=== PATIENT | female | born 2000 | race African-American/Black ===

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

== ENCOUNTER 2020-12-14 09:22 | Inpatient (IN) | payer OTHER ==
[~2020-12-14 09:22] MED LIST: Bupivacaine HCl 0.25%/Epi 0.0005/PF 10 ML VIAL FS ONE
[2020-12-14 09:51] VITALS: BMI 21.4
[2020-12-14] MEDS ORDERED: hydrALAZINE 20 MG/ML VIAL SLOW IVP PRN ×2 (11:00→23:24)
[2020-12-14] MEDS ORDERED: Lidocaine 1% (PF) 30 ML VIAL SC PRN (11:00)
[2020-12-14] MEDS ORDERED: Ondansetron PF 4 MG/2 ML Vial IVP PRN (11:00)
[2020-12-14] MEDS ORDERED: Acetaminophen 500 MG TAB PO PRN (11:00)
[2020-12-14] MEDS ORDERED: Promethazine HCl 25 MG/ML VIAL IM PRN (11:00)
[2020-12-14] MEDS ORDERED: Docusate 100 MG CAP PO PRN (11:00)
--- NOTE | 2020-12-14 11:06 | PDOC.FPROB ---
FMR OB H&P: HPI - History of Present Illness Chief Complaint: Leakage of fluid Indentification: 20 yo @ 38.4 wk by 22 wk US presenting for concern for SROM History of Present Illness: Presenting today for leakage of fluid. Stated that she noticed it at 5am when she woke up to a panty liner with fluid. She reported persistent leakage of fluid with mild blood tinge for the rest of the morning requiring 6 pads. She is feeling normal baby movement. She has had vaginal discharge 2/2 candidiasis treated with daily clotrimazole cream that she hasn't taken since Tuesday. Last VP3 negative for all pathogens on 12/12. Primary Care Physician: TYLER De Anda FMR OB H&P: Current - Care : 2 Para: 0010 Gestational age: 38.4 wks Due date: 12/24 Dating Criteria: 22 wk US Course/Complications: None - OB Labs Blood type: O RH: positive Antibody Screen: negative HIV: negative RPR: negative HepBsAg: negative Rubella: immune Gonorrhea: negative Chlamydia: negative 3 hour GTT: fast:74, 1 hr 140, 2 hr 107 GBS: negative FMR OB H&P: History - Past Medical History PMH: Anxiety, Depression, hx of self harm - OB History OB History: 1 2019 @ 11 wks - [employer] History [employer] History: None - Surgical History Sx History: Denies - Social History Social History: Denies X3 - Family History Family History: Thyroid issues in Mom and aunt-on medicine FMR OB H&P: Medications - Current Home Medications: Medication Instructions Recorded Confirmed Type Ferrous Sulfate 325 mg PO DAILY 12/14/20 12/14/20 History Vitamin 1 tablet PO DAILY 12/14/20 12/14/20 History Allergies/Adverse Reactions: Allergies Allergy/AdvReac Type Severity Reaction Status Date / Time No Known Allergies Allergy Unverified 12/14/20 09:52 FMR OB H&P: ROS - Review of Systems General: denies: fever/chills, weight/appetite/sleep changes Eyes: denies: vision changes, double vision ENT: denies: rhinorrhea, sore throat Cardiovascular: denies: chest pain, edema Respiratory: denies: cough, shortness of breath Gastrointestinal: denies: abdominal pain, nausea, vomiting, bright red blood Genitourinary (Female): denies: incontinence, dysuria, hematuria Musculoskeletal: denies: pain Neurologic: denies: numbness, syncope Hematologic/Lymphatic: denies: prolonged or excessive bleeding Psychological: denies: depression, anxiety FMR OB H&P: Vital Signs - Maternal Vital signs: Vital Signs - First Documented Temp Pulse Resp BP 98.3 F 81 18 108/73 12/14/20 09:35 12/14/20 09:35 12/14/20 09:35 12/14/20 09:35 - Heart Tones Baseline: 135 Variability: moderate Acceleration: present Deceleration: absent Category: category 1 [place] contractions every: 5-7 mins FMR OB H&P: Physical Exam - Physical Exam General: NAD, awake, alert and oriented HEENT: normocephalic and atraumatic, grossly normal vision, grossly normal hearing Neck: supple, FROM Heart: RRR, normal S1/S2 General: CTAB, no respiratory distress, good air movement Abdomen: gravid, non-tender, bowel sound present Neurological: sensation to pain,touch and proprioception grossly normal Skin: no rash, good tugor Lymphatic: no unusual bruising or bleeding, no purpura - Pelvic Exam Vulva: normal hair distribution, appropriate tello stage, no discharge SVE: /-2 Hopper score: 6 Membranes: ruptured Presentation: cephalic Estimated Weight: 7 lbs FMR OB H&P: A/P Discussion: Date/Time: 12/14/20 1106 20 yo @ 38.4 wk by 22 wk US presenting for concern for SROM sIUP in Labor - SROM based on pooling on exam, will admit - SVE /-2 serial recheck, consider starting pitocin at next check - FHT cat 1 - Desires epidural - Amnisure pending Will admit for labor, augmentation PRN. This H&P was discussed with Dr. Lin and Dr. Calix who agree with the above documentation and plan. Addendum - Attending - Attending Attestation Date/Time: 12/14/20 3131 I personally evaluated the patient and discussed the management with Dr. Aguilar I agree with the History, Examination, Assessment and Plan documented above with any addition or exceptions noted below - 20 yo @ 38.4 weeks presented c/o LOF @5AM. Denies any ctx, VB (+) FM. Afebrile VSS. SSE (+) pooling; SVE /-2; Cat 1 FHTs; [place]- ctx q 5-7 minutes. A/P: 1) IUP @38.4 weeks with ROM in early labor - will monitor for 2-3 hours and recheck. If no change or increased ctx, will start pitocin. Epidural when desired.
[2020-12-14] MEDS ORDERED: NS w/ Oxytocin 30 units 500 ML IVPB PRN (11:40)
[2020-12-14 11:48] LABS: Amnisure Test RUPTURE DETECTED (No Rupture)
[2020-12-14 11:49] LABS: Amnisure Internal Control QC ACCEPTABLE (ACCEPTABLE)
[2020-12-14] MEDS: Lactated Ringer's 1,000 ML IV SCH ×2 (12:11→17:01)
[2020-12-14 12:26] LABS: Hemoglobin 13.6 g/dL (12.0-16.0); Mean Corpuscular HGB CONC 34.6 g/dL (32.0-36.0); Mean Corpuscular Hemoglobin 31.6 pg (25.0-35.0); Mean Corpuscular Volume 91.2 fL (78.0-98.0); Mean Platelet Volume 8.6 fL (7.4-10.4); Platelet Count 154 thou/uL (130-400); Red Blood Cell (RBC) Count 4.32 mill/uL (4.00-5.20); White Blood Cell (WBC) Count 8.4 thou/uL (4.8-10.8)
[2020-12-14 13:14] LABS: HBSAg Index 0.18 S/CO (0-0.99); Hep B Surf Ag Non-Reactive S/CO (NonReactive)
[2020-12-14 13:19] LABS: Syphilis Antibody Nonreactive (Nonreactive); Syphilis Antibody Index 0.07 S/CO (<1.00 Non-Reactive)
--- NOTE | 2020-12-14 14:08 | PDOC.OBLPN ---
FMR OB Labor PN: Obj - Maternal Vital signs: BP: [] HR: [] RR: [] Tmax: [] Pox: []% on [] Wt: [] FMR OB Labor PN: Data - Labs Lab results: Laboratory Results - last 24 hr 12/14/20 12/14/20 12/14/20 10:22 12:17 12:17 WBC RBC Hgb Hct MCV MCH MCHC RDW Plt Count MPV Amnio Swab Test RUPTURE DETECTED H Syphilis IgG/IgM Ab Nonreactive Hep Bs Antigen Non-Reactive Blood Type Antibody Screen 12/14/20 12/14/20 12/14/20 12:17 12:17 12:50 WBC 8.4 RBC 4.32 Hgb 13.6 Hct 39.4 MCV 91.2 MCH 31.6 MCHC 34.6 RDW 13.0 Plt Count 154 MPV 8.6 Amnio Swab Test Syphilis IgG/IgM Ab Hep Bs Antigen Blood Type O POSITIVE O POSITIVE Antibody Screen NEGATIVE FMR OB Labor PN: A/P Discussion: Date/Time: 12/14/20 6590 This H&P was discussed with [] and [] who agree with the above documentation and plan.
--- NOTE | 2020-12-14 14:12 | PDOC.LDPN ---
Labor & Delivery Progress Note - Subjective Subjective: comfortable, no concerns - Objective Vital signs reviewed and normal: yes General: NAD, resting SVE: /-2 FHT: category 1, variability present [place] contractions every: 3-5 irregular Plan: continue plan of care, pitocin for augmentation -: 20 yo @ 38.4 wk by 22 wk US presenting for concern for SROM sIUP in Labor - SVE /-2, /-1 @ 1400 - FHT cat 1 - Desires epidural - Will start pitocin at this time, titrate as indicated - Amnisure positive Discussed w/ Dr. Calix.
[2020-12-14] MEDS ORDERED: Fentanyl 4 mcg/Bup 0.1% Cadd 100 ML ONE (15:46)
--- NOTE | 2020-12-14 16:38 | PDOC.LDPN ---
Labor & Delivery Progress Note - Subjective Subjective: comfortable - Objective Vital signs reviewed and normal: yes General: NAD SVE: 3.5/90/-1 FHT: category 1, variability present [place] contractions every: 3 mins Plan: continue plan of care, pitocin for augmentation -: 20 yo @ 38.4 wk by 22 wk US presenting for concern for SROM sIUP in Labor - SVE /-2, /-1 @ 1400, 3.5/-1 - FHT cat 1 - Desires epidural - Continue Pitocin, titrate as needed Discussed w/ Dr. Calix.
[2020-12-14 19:57] LABS: SARS-CoV-2 PCR by NAA Not Detected (NotDetected)
--- NOTE | 2020-12-14 21:02 | PDOC.BPN ---
- Brief Progress Note Cervical check at 2100: ant lip only contractions on toco q3-4 min on Pit 10 baseline 125 bpm with moderate variability and early decels anticipate . will set up for delivery
[2020-12-14] MEDS ORDERED: Milk Of Magnesia 30 ML UDCUP PO PRN (23:24)
[2020-12-14] MEDS ORDERED: NS / Oxytocin 40 units/1000ml 1,000 ML IV SCH (23:24)
[2020-12-14] MEDS ORDERED: Lanolin Ointment 7 GM TUBE TOP PRN (23:24)
[2020-12-14] MEDS ORDERED: Bisacodyl 10 MG SUPP PR PRN (23:24)
[2020-12-14] MEDS ORDERED: Benzocaine-Menthol 82.5 ML CAN TOP PRN (23:24)
[2020-12-15] MEDS ORDERED: Sodium Chloride 0.9% 10 ML ONE ×2 (01:11→06:45)
[2020-12-15] MEDS ORDERED: Ibuprofen 800 MG TAB PO SCH ×2 (02:00→06:00)
--- NOTE | 2020-12-15 06:56 | PDOC.OBPPN ---
FMR OB PN: Subj - Interval History Hospital Day: 1 Day: 1 Chief Complaint: LOF Indentification: G2>P1011 Interval History: No complaints FMR OB PN: Obj - Maternal Vital signs: BP: [123/79] HR: [72] RR: [20] Tmax: [98.9] Pox: [100]% on [Room Air] Wt: [] - Urine output I&O: 12/13/20 12/14/20 12/15/20 06:59 06:59 06:59 Intake Total 1164 Output Total 298 Balance 866 - Lochia Lochia: Mild - Pain Management Pain scale: 2 Intervention: oral medication FMR OB PN: Exam - Physical Exam General: NAD, awake, alert and oriented HEENT: normocephalic and atraumatic, PERRLA, EOMI, MMM, conjunctiva clear, no scleral icterus, grossly normal vision, grossly normal hearing, normal nasal mucosa, oropharynx clear Neck: supple, FROM, trachea midline Chest: non-tender to palpation Breast: symmetric Heart: RRR, normal S1/S2, no murmurs/rubs/gallops, pulses present, no edema General: CTAB, no respiratory distress, good air movement, no rales/rhonchi, no wheezing, no retractions Abdomen: soft, fundus(cm) (<Umbilicus), bowel sound present Musculoskeletal: pulses present, FROM in all four extremities, no atrophy Neurological: no focal deficit : appropriately tender Psychiatric: intact recent and remote memory, good judgement and insight, normal mood and affect FMR OB PN: Data - Labs Lab results: Laboratory Results - last 24 hr 12/14/20 12/14/20 12/14/20 10:22 12:17 12:17 WBC RBC Hgb Hct MCV MCH MCHC RDW Plt Count MPV Amnio Swab Test RUPTURE DETECTED H Syphilis IgG/IgM Ab Nonreactive Hep Bs Antigen Non-Reactive SARS CoV-2 Rapid Source SARS-CoV-2 RNA (REMY) Blood Type Antibody Screen 12/14/20 12/14/20 12/14/20 12:17 12:17 12:50 WBC 8.4 RBC 4.32 Hgb 13.6 Hct 39.4 MCV 91.2 MCH 31.6 MCHC 34.6 RDW 13.0 Plt Count 154 MPV 8.6 Amnio Swab Test Syphilis IgG/IgM Ab Hep Bs Antigen SARS CoV-2 Rapid Source SARS-CoV-2 RNA (REMY) Blood Type O POSITIVE O POSITIVE Antibody Screen NEGATIVE 12/14/20 13:00 WBC RBC Hgb Hct MCV MCH MCHC RDW Plt Count MPV Amnio Swab Test Syphilis IgG/IgM Ab Hep Bs Antigen SARS CoV-2 Rapid Source Nasopharyngeal Swab SARS-CoV-2 RNA (REMY) Not Detected Blood Type Antibody Screen FMR OB PN: A/P - Problem List (1) Intrauterine Current Visit: Yes Status: Acute Code(s): Z34.90 - ENCNTR FOR SUPRVSN OF NORMAL , UNSP, UNSP TRIMESTER (2) History of self-harm Current Visit: Yes Status: Acute Code(s): Z91.5 - PERSONAL HISTORY OF SELF- HARM Disposition: Patient is a 20 y/o G2>P1010 @ 38.4W EGA by LMP, c/w 2T US, who presented to L&D for evaluation of LOF. #SIUP, devliered -Patient delivered via @ 2138 on 12/14/20 -Delivery was complicated by 2 olaf-urethral tears and a 1* perineal laceration - s/p repair, hemodynamically stable -Pain well controlled with PRN Tylenol / Ibuprofen / routine perineal care -VSS overnight - no fevers or elevated pressures -Physical Exam unremarkable, with fundus < umbilicus and no strike-through noted on pad -Patient desires to breastfeed - consult in place -Will otherwise plan for routine Care #Hx of Self-Harm -Tracked throughout with QTrimester PHQ-9s - no repeat episodes noted during period -Patient appears well at this time -Will monitor closely for signs of Depression / Psychosis PCP: TYLER Cortés) Diet: Full Activity: Ad ben VTE PPx: None IVF: None ABx: None Dispo: Patient is currently stable and admitted to the cardiology nurse Women's Floor for routine Care. Will control pain and monitor for signs and symptoms of Depression / Psychosis throughout stay, and will otherwise plan for routine Care. Will likely plan to transfer to [facility] based on stability. Expected LOS < 48H. Discussion: Date/Time: 12/15/20 4029 This H&P was discussed with [] and [] who agree with the above documentation and plan. Addendum - Attending - Attending Attestation Date/Time: 12/15/20 7510 I personally evaluated the patient and discussed the management with Dr. De Anda I agree with the History, Examination, Assessment and Plan documented above with any addition or exceptions noted below - Patient without complaints. Afebrile VSS. A/P: 1) PPD #1 s/p - continue routine care. Transfer to [facility] today.
--- NOTE | 2020-12-15 07:23 | DN ---
DATE OF PROCEDURE: 12/14/2020 DELIVERING PHYSICIANS: Briseyda Farrell MD, PGY-1 and Nomi De Anda MD, PGY- 2 ATTENDING PHYSICIAN: Дмитрий Garay MD PROCEDURE: Spontaneous vaginal delivery. ANESTHESIA: Epidural. QBL: 130 mL. PREOPERATIVE DIAGNOSES: 1. Term intrauterine , in labor. 2. History of anxiety and depression and self-harm. POSTOPERATIVE DIAGNOSES: 1. Term intrauterine , delivered. 2. History of anxiety and depression and self-harm. INDICATIONS: A 20-year-old female, G2, P0-0-1-0 at 38 and 4 weeks by 22-week ultrasound, who delivered a viable male infant at 2138 hours. Following an uneventful antepartum course, a vigorous male was delivered over the perineum in the occipitoanterior position, anterior shoulder and then remainder of the body was delivered. No nuchal cord. The head was held down, and the mouth and nares were bulb suctioned. Cord clamped and cut, and cord blood collected. Placenta delivered intact with a three-vessel cord noted in the Evans presentation. Fundal massage was performed and the fundus was firm. The cervix and vagina were inspected and found to have a first-degree perineal laceration with bilateral periurethral tears. They were repaired with 3-0 chromic and 3-0 Vicryl in the usual fashion with good approximation of hemostasis. Infant went to nursery in good condition for routine care. Apgars were 8 and 9 at one and five minutes respectively. The patient tolerated delivery well and went to after routine recovery and care. Dr. Garay was present and teaching throughout the whole delivery. Job ID: [id number] [facility]
[2020-12-15] MEDS ORDERED: Ferrous Sulfate 325 MG TAB PO SCH (08:00)
[2020-12-15 08:15] VITALS: BP 98/61; TEMP 98
--- NOTE | 2020-12-15 08:51 | PDOC.DS.DS ---
Provider Date of Admission: 12/14/20 11:35 Admitting Provider: Poonam Calix MD Primary Care Physician: [facility] Hospital Course: Patient is a 20 y/o G2>P1010 @ 38.4W EGA by LMP, c/w 2T US s/p @ 2138 on 12/14/20. Delivery was complicated by 2 olaf-urethral tears and a 1* perineal laceration - s/p repair, hemodynamically stable. Delivered viable male. Lab Results: 12/14/20 12:17 Abnormal Lab Results - Last 48 hrs 12/14/20 10:22: Amnio Swab Test RUPTURE DETECTED H Vitals: Vital Signs (12 hours) Temp Pulse Resp BP Pulse Ox 12/15/20 08:00 98.0 F 84 20 98/61 98 12/15/20 03:20 98.9 F 72 20 123/79 100 12/15/20 02:20 98.1 F 100 20 114/75 100 12/15/20 01:10 98.5 F 84 20 115/66 100 Weight Weight 56.699 kg Physical Exam: The patient was seen and examined on the day of discharge. Problem Assessment: Patient stable to transfer to [facility] for further care. Will control pain and monitor for signs and symptoms of Depression / Psychosis throughout stay, and will otherwise plan for routine Care. Plan Home Medications: Medication Instructions Recorded Confirmed Type Ferrous Sulfate 325 mg PO DAILY 12/14/20 12/14/20 History Vitamin 1 tablet PO DAILY 12/14/20 12/14/20 History Allergies: No Known Allergies Allergy (Unverified 12/14/20 09:52) Activity:: Activity as Tolerated Nourishment:: Regular Diet Therapies:: Not Applicable Equipment/Supplies:: Not Applicable IV Therapy:: Not Applicable Referrals: Poonam Calix MD [Primary Care Provider] - Disposition: OTHER HOSPITAL IN [facility] MEASURES:: N/A Did you prescribe antithrombotic therapy?: No Specify reason for no DC antithrombotic therapy: Treatment not indicated Did you prescribe anticoagulant for A Fib/Flutter?: No Specify reason for no DC anticoagulant: Treatment not indicated Did you prescribe a statin medication?: No Specify reason for no DC statin medication: Treatment not indicated
[2020-12-15] MEDS ORDERED: Prenatal Vitamin 1 TAB PO SCH (09:00)
[2020-12-15] MEDS ORDERED: FLU VACC QS2020-21(6MOS UP)/PF 60 MCG/0.5 ML SYRINGE IM ONE (09:00)
[2020-12-15] MEDS ORDERED: Adacel (T-DAP) 0.5 ML SYRINGE IM ONE (09:00)
[2020-12-15] MEDS ORDERED: Docusate Calcium (SURFAK) 240 MG CAP PO SCH (09:00)
== END 2020-12-15 09:10 | disposition short-term general hospital (02) | DRG 807 ==
LOC: L&D/OP 09:22 → L&D 11:35 → 3SW 12-15 01:01
PROVIDERS: ADMIT Family Medicine; ATTEND Family Medicine
PROC: 10E0XZZ Delivery of Products of Conception, External Approach (ICD-10-PCS; principal; 2020-12-14)
PROC: 0HQ9XZZ Repair Perineum Skin, External Approach (ICD-10-PCS; 2020-12-14)
PROC: 0UQMXZZ Repair Vulva, External Approach (ICD-10-PCS; 2020-12-14)
DX: O76 Abnormality in fetal heart rate and rhythm complicating labor and delivery (principal); Z37.0 Single live birth; Z3A.38 38 weeks gestation of pregnancy; Z20.822 Contact with and (suspected) exposure to COVID-19; O99.344 Other mental disorders complicating childbirth; F32.9 Major depressive disorder, single episode, unspecified; F41.9 Anxiety disorder, unspecified; Z91.5 Personal history of self-harm; O70.0 First degree perineal laceration during delivery; O71.82 Other specified trauma to perineum and vulva
CPT/HCPCS: 36415; 51702; 84112; 85027; 86780; 86850; 86900; 86901; 87340; 87635; 99285; J2590; U0003; U0005

== ENCOUNTER 2022-03-22 20:00 | Emergency (ER) | payer OTHER ==
[2022-03-22 21:13] LABS: Bilirubin Negative (Negative); Blood, Urine Negative (Negative); Clarity Clear (Clear); Glucose, Urine (Dipstick) Normal (Negative); Ketone, Urine Negative (Negative); Leukocyte Negative Leu/uL (Negative); Nitrite Negative (Negative); Protein, Urine (Dipstick) 10 mg/dL (Neg-Trace); Specific Gravity, Urine 1.034 (1.002-1.036); Urobilinogen Normal mg/dL (Less than 2); pH, Urine 5.5 (5.0-9.0)
[2022-03-22 21:54] LABS: ALT (SGPT) 10 U/L (8-55); AST (SGOT) 22 U/L (5-34); Albumin 3.9 g/dL (3.5-5.0); Alkaline Phosphatase 60 U/L (40-110); Anion Gap 12 mmol/L (10-20); BUN (Urea Nitrogen) 10 mg/dL (7.0-18.7); Bilirubin, Total 0.6 mg/dL (0.2-1.2); Calc. Creatinine Clearance 0 mL/min (70-130); Calcium 8.5 mg/dL (7.8-10.44); Carbon Dioxide 20 mmol/L (22-29); Chloride 108 mmol/L (98-107); Globulin 3.4 g/dL (2.4-3.5); Glucose 106 mg/dL (70-105); Potassium 3.3 mmol/L (3.5-5.1); Protein, Total 7.3 g/dL (6.0-8.3); Sodium 137 mmol/L (136-145)
[2022-03-22 21:56] LABS: BHCG - Serum POSITIVE (NEGATIVE); Pregs Control Background? CLEAR/WHITE (CLR/WHITE); Pregs Control Bar Appear? YES (CONTROL BAR)
[2022-03-22 22:34] LABS: #Eosinphils 0.1 thou/uL (0.0-0.7); #Lymphocytes 2.5 thou/uL (1.20-3.40); #Monocytes 0.3 thou/uL (0.11-0.59); #Neutrophils 2.3 thou/uL (1.40-6.50); %Basophils 0.5 % (0.0-1.0); %Eosinophils 2.4 % (0.0-10.0); %Lymphocytes 47.3 % (21.0-51.0); %Monocytes 6.1 % (0.0-10.0); %Neutrophils 43.6 % (42.0-75.0); Hemoglobin 12.6 g/dL (12.0-16.0); Mean Corpuscular HGB CONC 33.8 g/dL (32.0-36.0); Mean Corpuscular Hemoglobin 29.4 pg (27.0-31.0); Mean Platelet Volume 7.6 fL (7.4-10.4); Platelet Count 204 thou/uL (130-400); RBC Distribution Width 12.6 % (11.5-14.5); Red Blood Cell (RBC) Count 4.29 mill/uL (4.20-5.40); White Blood Cell (WBC) Count 5.3 thou/uL (4.8-10.8)
== END 2022-03-22 22:48 | disposition home or self-care (01) ==
LOC: ERS 20:00
DX: O99.891 Other specified diseases and conditions complicating pregnancy (principal); R10.30 Lower abdominal pain, unspecified; Z3A.01 Less than 8 weeks gestation of pregnancy
CPT/HCPCS: 36415; 76856; 80053; 81003; 84702; 84703; 85025; 86900; 86901; 93976